=== PATIENT | female | born 1960 | race Caucasian/White ===

== ENCOUNTER 2024-10-28 06:26 | Day surgery (SDC) | payer MEDICARE, OTHER, SELFPAY | END 2024-10-28 14:30 | disposition home or self-care (01) | LOC: GI 06:26 | PROVIDERS: ATTENDING PHYSICIAN Specialist | DX: K22.70 Barrett's esophagus without dysplasia (principal); K31.89 Other diseases of stomach and duodenum; R13.10 Dysphagia, unspecified | CPT/HCPCS: 43239; 88305 ==

== ENCOUNTER 2025-05-19 12:38 | Observation (INO) | payer MEDICARE, OTHER, SELFPAY ==
[2025-05-19] VITALS (9 sets, daily range): BP systolic 101–154; BP diastolic 58–99; BMI 26.4
--- NOTE | 2025-05-19 10:43 | ED.CVA ---
History of Present Illness
General
Chief Complaint: CVA/TIA Symptoms
Source: patient and spouse
Exam Limitations: none
Time Seen by Provider: 05/19/25 10:31
Nursing documentation reviewed up to this point in time: agreed with
Onset of Stroke Symptoms
Onset of symptoms known: No
Time pt last seen normal is known: Yes
Date last time pt seen normal: 05/19/25
Time last time pt seen normal: 00:00
History of Present Illness
History of Present Illness:
65-year-old female with a past medical history as noted presents to the emergency department for evaluation of speech difficulties, feeling off balance and weak. Patient reports that she woke up this morning and she felt that her head was 'heavy'
and she says that she felt very 'wobbly.' She says that she was talking to her family and they noted that her speech was not normal. She feels weak all over but does not report any focal weakness subjectively and denies feeling numb in her
extremities. She denies any loss of vision. She denies any neck pain. She had a similar episode yesterday morning when she woke up that lasted for a few minutes and resolved, was in her normal state of health before bed at midnight last night and
then woke up with symptoms this morning.
Past History
Past History
ED Past Medical History: Other (thyroid cancer)
Social History
Tobacco: Non-smoker
Personal:
Living: with family
Review of Systems
Review of Systems
All Other Systems: ROS reviewed and negative except as documented in HPI and ROS
Constitutional: Reports fatigue; Denies fever
Respiratory: Denies trouble breathing
Cardiac: Denies chest pain
ABD/GI: Denies abdominal pain
Neurological: Reports dizzy, headache and weakness; Denies numbness
Phy Exam
Physical Exam
Physical Exam:
General: Awake, alert, oriented x3; no acute distress
Head: Normocephalic, atraumatic
Eyes: Conjunctiva normal, pupils equal round and reactive to light bilaterally
Throat: Airway intact, handling secretions
Neck: Trachea midline, supple without meningismus
Lungs: Clear to auscultation bilaterally, no wheezing, rales, rhonchi
Heart: Regular rate and rhythm, no murmurs, gallops, or rubs
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
right upper and lower extremity throughout; sensation intact in all extremities
Skin: Warm and dry
Extremities: No edema in extremities, equal pulses in all extremities
Scores
NIH Stroke Score
Level of Consciousness: 0 - Alert
LOC Questions: 0-Answers both correctly
LOC Commands: 0-Performs both correctly
Best Horizontal Gaze: 0-Normal
Visual Decker: 0=Normal, no visual loss
Facial Palsy: 0=Normal, symmetrical
Motor - Right Arm: 0=No drift 10 seconds
Motor - Left Arm: 0=No drift 10 seconds
Motor - Right Le-No drift 5 seconds
Motor - Left Le-Partial vs. gravity
Limb Ataxia: 1-Present in one limb
Sensation: 0-Normal
Best Language: 0-No aphasia
Dysarthria: 1-Mild slurring
Extinction and Inattention: 0-No abnormality
NIH Total Score:: 4
Thrombolytic Contraindication
Inclusion and Exclusion criteria reviewed: Yes
Reasons for NON-Tx with Thrombolytics ABSOLUTE Exclusions: Greater than 4.5 hrs from onset of sxs
Course
Orders/Labs/Results
Orders:
Orders
05/19/25 10:42
Electrocardiogram (*1) Stat
Reason for Study: Other
Other Reason for Exam: neuro symptoms
CT BRAIN PERF STROKE ALERT Urgent
Comment:
Reason For Exam: left sided weakness, clumsiness, aphasia
CT HEAD STROKE ALERT W/o Cont Urgent
Comment:
Reason For Exam: left sided weakness, clumsiness, aphasia
CT HEAD/NECK ANG STROKE ALERT Urgent
Comment:
Reason For Exam: left sided weakness, clumsiness, aphasia
NEUROLOGY CONSULT Urgent
Consulting Provider: Delvin Barrera
Was physician already notified: Yes
Bedside Glucose- Treatment ONCE
Cardiac Monitoring- Treatment ONCE
EKG- Treatment ONCE
05/19/25 10:50
Cardiovascular Evaluation Urgent
Comment: ADD ON
Complete Blood Count/With Diff Urgent
Comprehensive Metabolic Panel Urgent
Ferritin Urgent
Comment: ADD ON
Folate Urgent
Comment: ADD ON
Glycohemoglobin (HgbA1c) Urgent
PTT Urgent
Prothrombin Time Urgent
TSH Reflex To Free T4 Urgent
Comment: ADD ON
Vitamin B12 Urgent
Comment: ADD ON
05/19/25 11:44
Aspirin 325 mg PO NOW STA
Clopidogrel Bisulfate [Plavix] 300 mg PO NOW STA
05/19/25 12:18
Admit/Transfer Patient As Directed
Co-Sign Provider:
Level of Care: Observation services
Assign to:: Telemetry
Physician / Group: césar
Diagnosis: gait dysfunction
Reason for Telemetry: Arrhythmia
Date to Stop Telemetry: 05/22/25
Time to Stop Telemetry: 11:00
PRN Pain Medication Management As Directed
May give lesser potent ordered pain med per pt: Yes
preference::
Protocol:: Medication orders for pain may be administered in a
manner that supports deferring to patient preference
when the pt is:
- Requesting an ordered lesser potent pain medication.
Least to most potent pain medications are defined
as: acetaminophen < NSAID < tramadol < opioids
(morphine, oxycodone, hydromorphone).
- Requesting a lesser dose of the same medication IF
ORDERED.
- Requesting a less intrusive route of administration
if both routes are prescribed by the provider (PO <
IV).
05/19/25 12:19
Code Status As Directed
Resuscitation Status: Full Code
05/19/25 13:54
Case Management Consult ONCE
Case Management Consult: Discharge Planning
Comment: stroke/tia
DIETARY IP CONSULT Routine
Reason for Consult: stroke/TIA
Sorting Machine Operator Urgent
MR Brain Without Contrast Routine
Comment:
Reason For Exam: stroke/TIA
Recent pill cam endoscopy?: No
Activity As Directed
Activity Level: As Tolerated
NIH Stroke Scale As Directed
Directions: Per protocol
Comment: every shift and with any change in condition or mental status
Neurological Checks As Directed
Frequency: q4h
Additional Instructions:: q4h x 24h upon admission to the floor, then qshift & with any change in condition
and mental status
Patient Education As Directed
Type: Stroke education packet
Comment: provide to patient and family
Pneumatic Compression Sleeves As Directed
Type: Knee high
Swallow Screening CVA/TIA ONLY As Directed
Comment: NPO until swallowing screening completed
If patient FAILS swallow screening:: NPO, Speech Therapy consult, Aspiration Precautions
If patient PASSES swallow screening, diet:: Regular
Above diet order entered?: Yes- passed screening
Vital Signs As Directed
Frequency: Per unit guidelines
Ot Eval And Treat Routine
Pt Eval And Treat Routine
Activity Level: As Tolerated
Speech Therapy Eval & Treat Routine
DX Deep Vein Thrombosis Video Routine
05/19/25 18:00
Atorvastatin [Lipitor] 10 mg PO QPM
05/19/25 22:00
Melatonin 5 mg PO HS
Trazodone [Desyrel] 150 mg PO HS
05/20/25 06:00
Cardiovascular Evaluation IN AM
Complete Blood Count/With Diff IN AM
Comprehensive Metabolic Panel IN AM
05/20/25 08:00
Aspirin Chewable [Low Strength Aspirin] 81 mg PO DAILY
Bupropion(24Hr)Extended Releas [WELLBUTRIN XL (24 hour extended release)] 300 mg PO DAILY
Calcium Carbonate/Vitamin D3 [Oscal 500 + D] 500 mg PO DAILY
Cholecalciferol (Vitamin D3) [VITAMIN D3 (cholecalciferol)] 125 mcg PO DAILY
Clopidogrel Bisulfate [Plavix] 75 mg PO DAILY
Cyanocobalamin [Vitamin B-12] 1,000 mcg PO DAILY
Jkwpklnop-Rjc-Umop [Femara] 2.5 mg PO DAILY
Magnesium Oxide 400 mg PO DAILY
Multivitamin [Theragran] 1 tablet PO DAILY
Pantoprazole [Protonix] 40 mg PO DAILY
Topiramate [Topamax] 100 mg PO DAILY
biotin 1 mg PO DAILY
05/22/25 11:00
DC Protocol for Telemetry ONCE
Abnormal Lab Results
05/19/25
10:50
Basophils % 2.1 H %
(0-2)
Chloride 108 H mmol/L
(98-107)
05/19/25 10:50
05/19/25 10:50
Vital Signs
Initial and Last Documented VS:
Initial Vital Signs
Temp Pulse Resp BP Pulse Ox
36.6 C 66 20 150/83 97
05/19/25 09:39 05/19/25 09:39 05/19/25 09:39 05/19/25 09:39 05/19/25 09:39
Last Documented Vital Signs
Temp Pulse Resp BP Pulse Ox
36.5 C 70 16 154/76 99
05/19/25 13:36 05/19/25 13:36 05/19/25 13:36 05/19/25 13:36 05/19/25 13:36
MDM/Problems Addressed
Differential Diagnosis Includes:
Stroke, brain mass/brain bleed, complicated migraine, electrolyte abnormality
MDM/Problems Addressed:
65-year-old female presents to the ER for evaluation of weakness and balance issues that started this morning after having a transient episode yesterday morning. Family noted some speech difficulties as well. Woke up with symptoms, last normal
before bed at midnight last night. Hypertensive but otherwise normal vitals. Physical exam as noted. Stroke alert called after my initial assessment. NIH stroke scale as noted above. Unlikely to be thrombolytic candidate with wake-up symptoms.
Nevertheless we will proceed with CT head, CTA head and neck, CT perfusion. Check labs, EKG. Will discuss with neurology.
Labs reviewed: CBC and CMP unremarkable. CT head no acute abnormalities. Patient seen by neurology they agree concerning for CVA. Agree that patient is outside window for tenecteplase. Recommended treating with full dose aspirin, Plavix,
admission for continued workup. Discussed case with hospitalist for admission.
Chronic conditions affecting care:
Former smoker
Acute Exacerbation and/or Progression of Chronic Illness: HTN
*Radiology
Radiology exam reviewed: radiology read reviewed
*Pulse Oximetry
SaO2: 97
Oxygen Mode of Delivery: Room air
Patient hypoxic: no (97%)
*Critical Care Note
Total Time (30-74mins, 75-104mins- exclusive of procedures): Not Applicable
Data Reviewed
Source: patient and spouse
Patient Management
Discussion with other providers: Hospitalist (Discussed with hospitalist) and High Raw Sugar Boiler (Discussed with neurologist)
Escalation/DeEscalation of care consider admission/obs:
Admission indicated
ED Attending Note
-
Portions of this chart may have been created with voice recognition software.� Occasional wrong word or��sound alike� substitutions may have occurred due to the inherent limitations of voice recognition software.
Discharge Plan
Departure
Patient Disposition: Admit
Date of Disposition: 05/19/25
Time of Disposition: 11:46
Admit to doctor: Clint
Presentation/result/management discussed w/ accepting MD/DO: Hospitalist
Discharge Problem:
Acute CVA (cerebrovascular accident)
Interventions
Interventions:
*Risk Screen - Suicide Last Done: 05/19/25 09:39
*General Assessment Last Done: 05/19/25 09:39
*Neglect/Abuse Screening Last Done: 05/19/25 09:39
*ED- Fall Risk Assessment Last Done: 05/19/25 11:48
*ED COVID-19 Vaccine History Last Done: 05/19/25 11:11
*ED Influenza Vaccine History Last Done: 05/19/25 11:11
*Nursing Disposition Last Done: 05/19/25 13:19
ED- Pulmonary Assessment Last Done: 05/19/25 11:48
ED- Neurological Assessment Last Done: 05/19/25 11:48
ED- Cardiac Assessment Last Done: 05/19/25 11:48
ED Swallowing Screen Last Done: 05/19/25 11:48
Discharge Date and Time
Discharge Date/Time: 05/19/25 13:20
--- NOTE | 2025-05-19 10:43 | ED TECH ---
A STROKE ALERT was called #[id number]# Per @10:43 AM .Cat Scan Notified.
[2025-05-19 11:00] LABS: Hematocrit 41.1 % (37.0-47.0); Hemoglobin 13.7 g/dL (12.0-16.0); Mean Corp Hgb Conc. 33.3 g/dL (33.0-37.0); Mean Corpuscular Volume 89.9 fL (81.0-99.0); Nucleated Red Blood Cells % 0 %; Platelet Count 143 10^3/uL (130-400); Red Cell Dist. Width 13.7 % (11.5-14.5)
[2025-05-19 11:07] LABS: INR 0.94; PT 13.0 Sec (11.4-14.6)
--- NOTE | 2025-05-19 11:07 | CON.NEURO4 ---
Addendum entered and electronically signed by Delvin Barrera MD 05/19/25 21:04:
The patient was seen and examined on 05/19/2025, along with the nurse practitioner Snehal Granger and I agree with the assessment and the management plan of the nurse practitioner Snehal Granger. Given below is my addendum.
This is a 65-year-old right-handed female who has presented to the hospital with report of left-sided weakness, speech difficulty, and ataxia. Patient and her spouse at bedside report that yesterday morning (05/18/25), she woke up and felt 'wobbly'
and had some difficulty word finding. This resolves after a few minutes. She went to bed in her usual state last night at midnight. She reports waking up at 0830 this morning feeling dizzy and her spouse noted that he left arm and leg seemed weak,
she was unable to walk straight, and her speech wasn't fluent.
On neurologic examination, the patient had mild expressive aphasia, mild dysarthria, drift of the left upper and lower extremities along with ataxia of the left upper and lower extremities.
The NIHSS = 6.
CT head did not show any acute intracranial abnormality.
CTA head/neck did not show a large vessel occlusion.
She is not a candidate for TNK for being outside the time window and she is not a candidate for IAT as there is no LVO.
The patient will be admitted to the hospital. The patient was given a loading dose of DAPT with aspirin 325 mg and clopidogrel 300 mg x 1. She will continue aspirin 81 mg daily and clopidogrel 75 mg daily for 21 days and then she will stop
clopidogrel and continue aspirin only.
. MRI brain did not show any acute intracranial abnormality.
. TTE is pending.
. LDL goal of less than 70.
. Patient will also be on atorvastatin 40 mg daily.
I had a detailed discussion with the patient and her regarding the assessment and the management plan, and they verbalized understanding of our discussion.
Original Note:
Consultation - Neurology 4
-
CONSULTING PHYSICIAN: Delvin Barrera MD
REFERRING PHYSICIAN: ER/Dr. Pedraza
DICTATED BY: KENNEDY Stovall
DATE/TIME OF REQUEST: 05/19/25
DATE/TIME OF CONSULTATION: 05/19/25
Reason for Consultation: Stroke Alert
History of Present Illness:
This is a 65-year-old right-handed female who has presented to the hospital with report of left-sided weakness, speech difficulty, and ataxia. Patient and her spouse at bedside report that yesterday morning (05/18/25), she woke up and felt 'wobbly'
and had some difficulty word finding. This resolves after a few minutes. She went to bed in her usual state last night at midnight. She reports waking up at 0730 this morning feeling dizzy and her spouse noted that he left arm and leg seemed weak,
she was unable to walk straight, and her speech wasn't fluent. CT head, CTA head/neck, and CT brain perfusion were obtained on arrival and are negative for any acute abnormalities. NIHSS is 6 for LUE/LLE drift and ataxia, mild dysarthria, and mild
aphasia. She is not a candidate for TNK/IAT due to being outside of the time window and no LVO. Patient denies any headache and vision changes. She denies any history of TIA, stroke, or events like this in the past. She is not taking any
blood-thinning medications.
Past Medical History: HLD, thyroid cancer, migraines, restless legs syndrome, GERD, depression, anxiety
Surgical History: Thyroidectomy.
Family History: Reviewed and noncontributory.
Social History: Denies tobacco, alcohol, and illicit drug use.
Allergies: No known allergies.
Home Medications: See below.
Review of Symptoms:
Patient denies any fever, headache, chest pain, shortness of breath, GI or symptoms.
�Per the HPI.�All systems are reviewed negative except above.
Physical Exam:
The patient is afebrile, abdomen is nondistended, breathing is unlabored, skin is warm and dry, no edema.
NIH Stroke Scale:
I performed the NIH stroke scale on the patient on 05/19/25 at 1110. The patient scored 6 points on the NIH stroke scale assessment, which were assigned as follows: See below.
Neurologic Examination:
The patient is awake, alert and oriented x 3. She is able to follow commands and answer questions appropriately. There is mild aphasia and mild dysarthria. On cranial nerve assessment, pupils are 3 mm bilateral, round and reactive to light and
accommodation. Visual decker are full. Extraocular movements are intact. Facial sensations are intact and bilaterally symmetrical, there is no facial asymmetry. Hearing is intact bilaterally to normal conversation volume. Tongue palate and uvula are
midline. Motor strengths are 5/5 right upper and lower, 5-/5 left upper and lower extremities on medical research [place] scale. There is drift in the LUE and LLE. No involuntary movement noted. There was no extinction noted on double simultaneous
stimulation. Coordination is ataxic by finger to nose in the LUE and heel to gandhi in the LLE.
Lab Results: See below.
Neuro Imaging:
1. CT Head 05/19/25: No acute intracranial abnormality noted. Aspects score: 10.
2. CTA head/neck 05/19/25: Bilateral ICA calcified plaque, right greater than left. No hemodynamically significant stenosis, occlusion, or dissection. 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 No large
intracranial vessel occlusion.
3. CT brain perfusion 05/19/25: CBF 0ml, Tmax 0ml.
Differentials for the patient's presentation include:
1. Left-sided ataxia, mild weakness, and speech changes likely due to an acute ischemic stroke.
2. 2 small left supraclinoid ICA saccular aneurysms noted on CTA head/neck, incidental findings.
Patient has the following risk factors for their symptoms: HLD, age
IV Tenecteplase/IAT candidacy: She is not a candidate for TNK/IAT due to being outside of the time window and no LVO.
Recommendations:
-Provide a loading dose of DAPT with aspirin and clopidogrel x1 now. Continue DAPT for 21 days, then stop clopidogrel and continue aspirin 81mg daily only.
-Permissive hypertension SBP<220, DBP<120 until 05/20/25 at 0730, then goal normotension.
-MRI brain noncontrast pending.
-TTE pending.
-LDL goal <70. LDL is pending. Increase home atorvastatin 10mg daily to 40mg.
-Goal normoglycemia, hbA1c is pending.
-PT/OT/ST evaluations.
-NIHSS and neurological checks per unit guidelines.
-Provide patient/family with a stroke education packet.
-Eventual follow-up with Neurosurgery regarding L supraclinoid ICA aneurysms.
-DVT prophylaxis.
Discussed patient care with: Dr. Barrera, the patient
Vital Signs and Labs
-
Vital Signs and Labs:
Vital Signs
Temp Pulse Resp BP Pulse Ox
97.9 F 62 18 133/63 97
05/19/25 09:39 05/19/25 11:15 05/19/25 11:15 05/19/25 11:00 05/19/25 11:15
Lab Results
05/19/25 10:50
PT 13.0 Sec (11.4-14.6) 05/19/25 10:50
INR 0.94 05/19/25 10:50
APTT 32.2 Sec (23.4-35.0) 05/19/25 10:50
Medications
-
Home Medications
�Medication �Instructions �Recorded
oxycodone-acetaminophen 5 mg-325 1 ea PO Q4HPRN PRN abd pain 03/26/11
mg tablet (Percocet)
cyclobenzaprine 10 mg tablet 10 mg PO TID PRN muscle spasm #10 02/04/22
tabs
prednisone 10 mg tablet See Rx Instructions .Route 02/04/22
.COMPLEX #30 tabs
NIH Stroke Score
Subsequent NIH Scale
Date of Subsequent NIH Scale: 05/19/25
Time of Subsequent NIH Scale: 11:10
NIH Stroke Score
Level of Consciousness: 0 - Alert
LOC Questions: 0-Answers both correctly
LOC Commands: 0-Performs both correctly
Best Horizontal Gaze: 0-Normal
Visual Decker: 0=Normal, no visual loss
Facial Palsy: 0=Normal, symmetrical
Motor - Right Arm: 0=No drift 10 seconds
Motor - Left Arm: 1=Drift < 10 seconds
Motor - Right Le-No drift 5 seconds
Motor - Left Le-Drift < 5 seconds
Limb Ataxia: 2-Present in two limbs
Sensation: 0-Normal
Best Language: 1-Mild aphasia
Dysarthria: 1-Mild slurring
Extinction and Inattention: 0-No abnormality
NIH Total Score:: 6
Modified [place] (mRS) Score
Modified [place] Scale (mRS): Moderately severe disability. Unable to attend to bodily needs/walk.
Score: 4
Alteplase Contraindication
Inclusion and Exclusion criteria reviewed: Yes
Reasons for NON-Tx with Thrombolytics ABSOLUTE Exclusions: Greater than 4.5 hrs from onset of sxs
[2025-05-19 11:08] LABS: APTT 32.2 Sec (23.4-35.0)
[2025-05-19 11:23] LABS: ALT (SGPT) 20 U/L (0-35); AST (SGOT) 23 U/L (14-36); Albumin 4.1 g/dl (3.5-5.0); Alkaline Phosphatase 53 U/L (38-126); Blood Urea Nitrogen 17 mg/dl (7-17); Calcium 8.7 mg/dl (8.4-10.2); Carbon Dioxide 27 mmol/L (22-30); Chloride 108 mmol/L (98-107); Glucose 89 mg/dl (70-99); Potassium 4.0 mmol/L (3.5-5.1); Sodium 136 mmol/L (135-145); Total Protein 6.4 g/dl (6.3-8.2); eGFR > 60.00
[2025-05-19] MEDS: PLAVIX 300 MG PO (11:52)
[2025-05-19] MEDS: ASPIRIN 325 MG PO (11:52)
[2025-05-19 11:56] LABS: Glucose - Point of Care 89 mg/dl (70-99)
--- NOTE | 2025-05-19 12:22 | HPS.HSE ---
Addendum entered and electronically signed by Kade Bradley MD 05/19/25 12:26:
NIH of 3 for slurred speech +1 and weakness of left leg +2 on examination.
Original Note:
Family Physician
-
Family Physician: Gemma Griffith
Chief Complaint
-
gait dysfunction
History of Present Illness
65-year-old female past medical history of thyroid cancer status post partial thyroidectomy, hypercholesterolemia GERD, restless leg syndrome, obesity, migraines, presenting with speech difficulties, feeling off balance and weakness. She woke up
this morning and felt off balance. Denied vertigo. She had headache that felt different from her normal migraines. She was talking to her family and speech was not normal. No slurred speech. Has generalized weakness but denies focal weakness or
numbness or tingling. Denies vision loss. Denies neck pain. Had a similar episode yesterday when she woke up lasting for few minutes which resolved. Denies ever having symptoms like this before.
Denies chest pain or shortness of breath.
Patient does not smoke or drink alcohol or use drugs.
Her maternal grandmother had CVA.
Medical History
Past Medical History
Past Medical History: Reports Other (thyroid cancer status post partial thyroidectomy, hypercholesterolemia GERD, restless leg syndrome, obesity, migraines)
Past Surgical History: Reports None
Social History
Tobacco: Non-smoker
Alcohol: None
Drug: None
Family History
Family History: Not pertinent
Allergies / Home Medications
Allergies reflects when Allergies were last updated in [employer].
Home Medications with original date entered in [employer]
Allergy/Medication List:
Allergies
Allergy/AdvReac Type Severity Reaction Status Date / Time
No Known Allergies Allergy Verified 05/19/25 09:43
Home Medications
atorvastatin 10 mg tablet (Lipitor) 10 mg PO QPM High Cholesterol 05/19/25
biotin 1 mg tablet 1 mg PO DAILY Supplement 05/19/25
bupropion HCl 300 mg 24 hr tablet, extended release (Wellbutrin XL) 300 mg PO DAILY Mental Health/Anxiety 05/19/25
calcium 500 mg (as carbonate)-vitamin D3 10 mcg (400 unit) tablet (Calcium 500 + D) 1 tab PO DAILY Supplement 05/19/25
cholecalciferol (vitamin D3) 125 mcg (5,000 unit) tablet (Vitamin D3) 125 mcg PO DAILY Supplement 05/19/25
cyanocobalamin (vitamin B-12) 1,000 mcg tablet 1,000 mcg PO DAILY Supplement 05/19/25
letrozole 2.5 mg tablet 2.5 mg PO DAILY 05/19/25
magnesium oxide 400 mg PO DAILY Supplement 05/19/25
melatonin 5 mg tablet 5 mg PO HS Sleep 05/19/25
omeprazole 40 mg capsule,delayed release 40 mg PO DAILY Gastrointestinal Issue 05/19/25
therapeutic multivitamin 1 tab PO DAILY Supplement 05/19/25
topiramate 100 mg tablet 100 mg PO DAILY headaches 05/19/25
tramadol 50 mg tablet 50 mg PO BIDPRN PRN moderate pains 05/19/25
trazodone 100 mg tablet 150 mg PO HS Sleep 05/19/25
Review of Systems
-
History Source: Patient
A 12 point ROS was completed and negative except as noted: Yes
Constitutional: Reports No Symptoms
EENT: Reports No Symptoms
Respiratory: Reports No Symptoms
Cardiac: Reports No Symptoms
Abdomen/GI: Reports No Symptoms
: Reports No Symptoms
Musculoskeletal: Reports No Symptoms
Skin: Reports No Symptoms
Neurological: Reports See HPI
Endocrine: Reports No Symptoms
Hematologic/Lymphatic: Reports No Symptoms
Psych: Reports No Symptoms
Physical Exam
Vital Signs
Vital Signs
Temp Pulse Resp BP Pulse Ox
97.9 F 62 18 133/63 97
05/19/25 09:39 05/19/25 11:15 05/19/25 11:15 05/19/25 11:00 05/19/25 11:15
Physical Exam
General: Well Developed, Well Nourished and No Apparent Distress
HEENT: NormoCephalic, Moist mucous membranes and Atraumatic
Respiratory: Clear
Cardiac: S1/S2 and Regular Rhythm; No Murmur or Rub
GI: Soft, Non Tender, Non Distended and Normal Bowel Sounds; No Organomegaly
Rectal: Deferred by Provider
Musculoskeletal: No Clubbing, No Cyanosis and No Edema
Skin: No Rash
Neuro: Other (drift in left lower extremity, mild slurring )
Laboratory Results
-
05/19/25 10:50
05/19/25 10:50
Laboratory Results
PT 13.0 Sec (11.4-14.6) 05/19/25 10:50
INR 0.94 05/19/25 10:50
APTT 32.2 Sec (23.4-35.0) 05/19/25 10:50
Total Bilirubin 0.5 mg/dl (0.2-1.3) 05/19/25 10:50
AST 23 U/L (14-36) 05/19/25 10:50
ALT 20 U/L (0-35) 05/19/25 10:50
Alkaline Phosphatase 53 U/L (38-126) 05/19/25 10:50
Data Reviewed
-
Lab Data: Labs Reviewed by me
Old Records: Reviewed
Impression/Plan
-
IMPRESSION:
PLAN:
# Balance dysfunction/slurred speech/headache concerning for CVA
-CT head shows no acute abnormality
-CTA head and neck shows bilateral ICA calcified plaques, right greater than left, 2 small left supraclinoid ICA saccular aneurysms measuring 1.6 and 2 mm
-Out of window for TNK
- Aspirin and Plavix given
-continue statin
- Check MRI brain
- Neurology consulted
Thyroid cancer status post thyroidectomy
Hypercholesterolemia
- Continue statin
GERD
- Continue Meprazole
Restless leg syndrome
Obesity
Anxiety/depression
- Continue bupropion, trazodone
Breast cancer
- Continue letrozole
Uterine cancer status post hysterectomy
History of migraines
- Continue topiramate
Full code
DVT prophylaxis�SCDs
Regular diet
--- NOTE | 2025-05-19 12:50 | CM ---
Chart reviewed.
Spoke with patient and her William at ED bedside
BERRY reviewed with patient and
Lives in [facility] [address] [place] with spouse
Independent with ADLs
no DME
PCP Connie Griffith
RX plan yes
Ph[facility]acy [facility] in [place]
no hx of VN nor SNF
DCP is to go home
CM will continue to follow up for any dcp needs
[2025-05-19 15:46] LABS: HDL Cholesterol 64 mg/dl; LDL Cholesterol, Calculated 87 mg/dl; Very Low Density Lipoprotein 11 mg/dl (0-30)
[2025-05-19 16:33] LABS: Ferritin 65.7 ng/ml (11.1-264.0)
[2025-05-19 17:04] LABS: Folate 17.8 ng/ml (2.76-20); Vitamin B12 > 1000 pg/ml (239-931)
[2025-05-19] MEDS: LIPITOR 10 MG PO (17:25)
--- NOTE | 2025-05-19 17:28 | PTOTSP ---
ST Consult
Chart reviewed. INTELLIGENCE ENGINEER consulted for suspected TIA/CVA. MRI revealed no acute abnormalities. Pt passed nursing dysphagia screening and has been on a regular solids and thin liquids diet since admission without any reported issues or concerns for
aspiration. No major speech, language, cognitive, or swallowing concerns per RN. Acknowledge documentation of possible dysarthria - if this persists, pt can pursue OP INTELLIGENCE ENGINEER evaluation/tx as indicated. IP INTELLIGENCE ENGINEER evaluation deemed not warranted at this
time. INTELLIGENCE ENGINEER to sign off. Please re-consult if anything changes. Thank you.
[2025-05-19] MEDS: MELATONIN 5 MG PO (21:18)
[2025-05-19] MEDS: DESYREL 150 MG PO (21:19)
[2025-05-20 03:00] VITALS: BP 122/64
[2025-05-20 07:54] LABS: Hematocrit 40.5 % (37.0-47.0); Hemoglobin 13.5 g/dL (12.0-16.0); Mean Corp Hgb Conc. 33.3 g/dL (33.0-37.0); Mean Corpuscular Volume 87.7 fL (81.0-99.0); Nucleated Red Blood Cells % 0 %; Platelet Count 151 10^3/uL (130-400); Red Cell Dist. Width 13.6 % (11.5-14.5)
[2025-05-20 08:00] VITALS: BP 105/63
[2025-05-20 08:14] LABS: ALT (SGPT) 19 U/L (0-35); AST (SGOT) 20 U/L (14-36); Albumin 3.7 g/dl (3.5-5.0); Alkaline Phosphatase 59 U/L (38-126); Blood Urea Nitrogen 17 mg/dl (7-17); Calcium 8.9 mg/dl (8.4-10.2); Carbon Dioxide 25 mmol/L (22-30); Chloride 110 mmol/L (98-107); Estimated Creatinine Clearance 59 ml/min; Glucose 85 mg/dl (70-99); HDL Cholesterol 63 mg/dl; LDL Cholesterol, Calculated 85 mg/dl; Potassium 3.9 mmol/L (3.5-5.1); Sodium 137 mmol/L (135-145); Total Protein 6.0 g/dl (6.3-8.2); Very Low Density Lipoprotein 14 mg/dl (0-30); eGFR > 60.00
[2025-05-20] MEDS: FEMARA PO (08:50)
[2025-05-20] MEDS: PROTONIX 40 MG PO (08:51)
[2025-05-20] MEDS: WELLBUTRIN XL (24 hour extended release) 300 MG PO (08:51)
[2025-05-20] MEDS: VITAMIN B-12 1000 MCG PO (08:51)
[2025-05-20] MEDS: PLAVIX 75 MG PO (08:53)
[2025-05-20] MEDS: THERAGRAN 1 TABLET PO (08:53)
[2025-05-20] MEDS: MAGNESIUM OXIDE 400 MG PO (08:53)
[2025-05-20] MEDS: LOW STRENGTH ASPIRIN 81 MG PO (08:53)
[2025-05-20] MEDS: TOPAMAX 100 MG PO (08:53)
[2025-05-20] MEDS: VITAMIN D3 (cholecalciferol) 125 MCG PO (08:53)
[2025-05-20] MEDS: OSCAL 500 + D 500 MG PO (08:53)
--- NOTE | 2025-05-20 10:25 | W.PN.HOSP.TC ---
Addendum entered and electronically signed by Jayne Joyner MD 05/20/25 18:06:
Addendum
Patient was seen by neurologist. Discussed discharge and treatment plan with patient and her brother who is a family doctor
Discussed with neurologist. Okay to discharge and follow in outpatient. Continue dual antiplatelet therapy for 21 days and then continue on aspirin.
Discussed with patient, she is requesting discharge today.
Total discharge time spent to see the patient, examine the patient, review data and lab results, discuss discharge plan with patient, neurologist, case management specialist, nursing staff around 65 minutes�
Original Note:
Today's Communication/Plan
-
f/w neurology recommendations
Assessment / Plan
Assessment / Plan
65-year-old female presented to the hospital with report of left-sided weakness, speech difficulty, and ataxia.
# MRI showed no stroke
Possible TIA
She is followed by neurology
Started on dual ant-platelet therapy with high dose statin
Echo showed normal LVEF at 62%. No significant valvular heart disease.
Normal TSH & Folate & Vit B12
LDL at 85, HDL 14, TG 73, Total Cholesterol 162
f/w neurology recommendations
# Tobacco use
Counseled to quit
Thyroid cancer status post thyroidectomy
Hypercholesterolemia
- Continue statin
GERD
- Continue Meprazole
Restless leg syndrome
Obesity
Anxiety/depression
Mood is normal
- Continue bupropion, trazodone
Breast cancer
- Continue letrozole
Uterine cancer status post hysterectomy
History of migraines
- Continue topiramate
Total time spent to see the patient, examine the patient, review data and lab results, discuss treatment plan with patient, nursing staff around 55 minutes�
Anticipated Discharge: Today
Subjective/Interval History
-
Date of Service: May 20, 2025
No chest pain
No sob
Still word- finding difficulty
Objective Data
-
Labs:
Laboratory Results
05/20/25
06:53
WBC 6.0
Hgb 13.5
Hct 40.5
Plt Count 151
Sodium 137
Potassium 3.9
Chloride 110 H
Carbon Dioxide 25
BUN 17
Creatinine 0.8
Glucose 85
Calcium 8.9
Total Bilirubin 0.6
AST 20
ALT 19
Alkaline Phosphatase 59
Vital Signs:
Vital Signs
Temp Pulse Resp BP Pulse Ox
97.8 F 57 18 105/63 97
05/20/25 08:00 05/20/25 08:00 05/20/25 08:00 05/20/25 08:00 05/20/25 08:00
Physical Exam
-
General: No Apparent Distress and Comfortable
HEENT: Atraumatic and Moist Mucous Membranes
Respiratory: Clear to Auscultation
Cardiac: Regular Rhythm and S1/S2
GI: Soft and Nontender
Rectal: Negative Maroon Stools
Genito-urinary: No Costovertebral Tender; Negative Granados
Musculoskeletal: No Clubbing, No Cyanosis and No Edema
Skin: Warm and Dry
Neuro: AO x 3 and Nonfocal/Grossly Intact; Negative Facial Droop
Psych: Calm and Intact Judgement/Insight
[2025-05-20 11:12] VITALS: BP 127/60
[2025-05-20] MEDS: FEMARA 2.5 MG PO (11:55)
[2025-05-20 12:13] LABS: Glycohemoglobin (HgbA1c) 5.4 % (4.0-5.9)
--- NOTE | 2025-05-20 12:30 | W.PN.NEURO.1 ---
Today's Communication / Plan
-
On neurologic examination, today, her symptoms have improved, and she has a very subtle drift in the left arm and left leg. She does have have some difficulty with word finding, but when she stays calm and speaks slowly she can speak clearly.
. CT head did not show any acute intracranial abnormality.
. CTA head/neck did not show a large vessel occlusion.
She was not a candidate for TNK because of being outside the time window and she was not a candidate for IAT as there is no LVO.
The patient was given a loading dose of DAPT with aspirin 325 mg and clopidogrel 300 mg x 1. She will continue aspirin 81 mg daily and clopidogrel 75 mg daily for 21 days and then she will stop clopidogrel and continue aspirin only.
. MRI brain did not show any acute intracranial abnormality.
. TTE was done yesterday and it showed an ejection fraction of 62%.
. LDL goal of less than 70.
. Patient will also be on atorvastatin 40 mg daily.
Discussed with Dr. Jayne Joyner.
Subjective/Objective
Subjective Data
Date of Service: May 20, 2025
This is a 65-year-old right-handed female who has presented to the hospital with report of left-sided weakness, speech difficulty, and ataxia. Patient and her spouse at bedside in the ER reported that in the morning on 05/18/25, she woke up and felt
'wobbly' and had some difficulty with word finding. This resolved after a few minutes. She went to bed in her usual state at midnight. She reports waking up at 0830 in the morning on 05/19/2025, feeling dizzy and her spouse noted that her left arm
and leg seemed to be weak, she was unable to walk straight, and her speech wasn't fluent.
On neurologic examination, today, her symptoms have improved, and she has a very subtle drift in the left arm and left leg. She does have have some difficulty with word finding, but when she stays calm and speaks slowly she can speak clearly.
. CT head did not show any acute intracranial abnormality.
. CTA head/neck did not show a large vessel occlusion.
She was not a candidate for TNK because of being outside the time window and she was not a candidate for IAT as there is no LVO.
The patient was given a loading dose of DAPT with aspirin 325 mg and clopidogrel 300 mg x 1. She will continue aspirin 81 mg daily and clopidogrel 75 mg daily for 21 days and then she will stop clopidogrel and continue aspirin only.
. MRI brain did not show any acute intracranial abnormality.
. TTE was done yesterday and it showed an ejection fraction of 62%.
. LDL goal of less than 70.
. Patient will also be on atorvastatin 40 mg daily.
Objective Data
Vital Signs
Temp Pulse Resp BP Pulse Ox
36.6 C 68 18 127/60 96
05/20/25 11:12 05/20/25 11:12 05/20/25 11:12 05/20/25 11:12 05/20/25 11:12
Lab Results
05/20/25 06:53
05/20/25 06:53
PT 13.0 Sec (11.4-14.6) 05/19/25 10:50
INR 0.94 05/19/25 10:50
APTT 32.2 Sec (23.4-35.0) 05/19/25 10:50
Sodium 137 mmol/L (135-145) 05/20/25 06:53
Potassium 3.9 mmol/L (3.5-5.1) 05/20/25 06:53
BUN 17 mg/dl (7-17) 05/20/25 06:53
Glucose 85 mg/dl (70-99) 05/20/25 06:53
Calcium 8.9 mg/dl (8.4-10.2) 05/20/25 06:53
LDL Cholesterol, Calc 85 mg/dl 05/20/25 06:53
Vitamin B12 > 1000 pg/ml (239-931) H 05/19/25 10:50
Patient Allergies
No Known Allergies Allergy (Verified 05/19/25 09:43)
--- NOTE | 2025-05-20 15:20 | W.DCSUMMARY ---
Discharge Summary
Discharge Data
Date of Admission: 05/19/25
Date of Discharge: 05/20/25
-
Pending Results: No
Hospital Course
65-year-old right-handed female presented to the hospital with report of left-sided weakness, speech difficulty, and ataxia. Patient and her spouse at bedside reported that yesterday morning (05/18/25), she woke up and felt 'wobbly' and had some
difficulty word finding. That resolved after a few minutes. She went to bed in her usual state later that night but she woke up at 0730 next day, feeling dizzy. Her spouse noted that he left arm and leg seemed weak, she was unable to walk straight,
and her speech wasn't fluent. CT head, CTA head/neck, and CT brain perfusion were obtained on arrival and are negative for any acute abnormalities. She was not a candidate for TNK/IAT due to being outside of the time window. Patient was evaluated
by neurologist. Neurologist felt that could be TIA. She was started on dual antiplatelet therapy with aspirin and Plavix. Patient was not taking aspirin before. She was advised to avoid smoking and was given nicotine patch prescription. Lipid
panel showed total cholesterol 162, LDL 85, HDL 63. She had normal folate/vitamin B12/TSH. Heart monitor did not show any arrhythmias echocardiogram showed normal LVEF at 62% with no significant valvular disease. Patient started to feel better
and back to baseline. She was evaluated by physical therapy and Occupational Therapy. Patient did not have skilled needs. Patient remained hemodynamically stable. Neurologist recommended to continue aspirin Plavix for 21 days then to continue
with aspirin alone with higher dose of Lipitor. Patient was discharged home in a stable condition.
Discharge Plan
-
Patient Disposition: Home (Routine Discharge)
Discharge Diagnosis/Procedures: You presented with an episode of speech difficulty/feeling of balance and weakness. You had imaging studies of the head and neck did not show acute finding. You were evaluated by neurologist. Possible TIA (you did
well and felt back to normal. Neurologist recommended to take aspirin and Plavix for 21 days then continue with aspirin. Transient ischemic attack). Increase the dose of atorvastatin.
-Potential side effects of aspirin and Plavix include gastritis, bruising, Bleeding.
-Potential side effects of statin/Lipitor include myositis, myopathy, muscle pain, fatigue, elevated liver enzymes.
- Follow-up with neurology in 1 month. Follow-up with the primary care doctor within a week for outpatient physical therapy if needed.
- Tobacco use, advised to quit smoking
- Hold omeprazole while taking Plavix to avoid interaction.
Diet: As tolerated and Low Fat
Referrals:
Gemma Griffith MD [Family Provider] - in less than 1 week
Delvin Barrera MD [Active, Neurology] - in one month
Prescriptions:
New
clopidogrel 75 mg Tablet
75 mg PO DAILY Qty: 21 0RF
aspirin 81 mg Tablet,Chewable
81 mg PO DAILY Qty: 30 0RF
atorvastatin [Lipitor] 40 mg tablet
40 mg PO DAILY Qty: 30 0RF
nicotine 14 mg/24 hr patch 24 hour
1 patch transdermal DAILY Qty: 28 0RF
Continued
cyanocobalamin (vitamin B-12) 1,000 mcg Tablet
1,000 mcg PO DAILY
therapeutic multivitamin Tablet
1 tab PO DAILY
tramadol 50 mg Tablet
50 mg PO BIDPRN PRN (Reason: moderate pains)
trazodone 100 mg Tablet
150 mg PO HS
letrozole 2.5 mg Tablet
2.5 mg PO DAILY
topiramate 100 mg Tablet
100 mg PO DAILY
bupropion HCl [Wellbutrin XL] 300 mg Tablet Extended Release 24 Hr
300 mg PO DAILY
biotin 1 mg Tablet
1 mg PO DAILY
calcium carbonate-vitamin D3 [Calcium 500 + D] 500 mg-10 mcg (400 unit) Tablet
1 tab PO DAILY
melatonin 5 mg Tablet
5 mg PO HS
cholecalciferol (vitamin D3) [Vitamin D3] 125 mcg (5,000 unit) Tablet
125 mcg PO DAILY
magnesium oxide 400 mg magnesium Tablet
400 mg PO DAILY
Held
omeprazole 40 mg Capsule,Delayed Release(Dr/Ec)
40 mg PO DAILY
Hold Instructions: Resume on 06/10/25.
Discontinued
atorvastatin [Lipitor] 10 mg Tablet
10 mg PO QPM
Discharge Orders:
Discharge Patient (As Directed); Ordered 05/20/25
Ordered By: Jayne Joyner
Discharge Date and Time
Discharge Date/Time: 05/20/25 16:54
Print Language: ROMANSH
--- NOTE | 2025-05-20 15:28 | CM ---
Chart reviewed. Patient will d/c home today
PT- rec OP PT. TT to hospitalist for script
No other CM needs at this time
Plan: Home, OP PT
[2025-05-20 16:11] VITALS: BP 115/67
== END 2025-05-20 16:54 | disposition home or self-care (01) ==
LOC: 4 EAST ACU 12:38
PROVIDERS: ADMITTING PHYSICIAN Hospitalist; ATTENDING PHYSICIAN Internal Medicine; CONSULT PHYSICIAN Psychiatry & Neurology Neurology; EMERGENCY PHYSICIAN Emergency Medicine; FAMILY PHYSICIAN Family Medicine
DX: R53.1 Weakness (principal); R26.81 Unsteadiness on feet; Z72.0 Tobacco use; R47.1 Dysarthria and anarthria; Z79.899 Other long term (current) drug therapy; E78.00 Pure hypercholesterolemia, unspecified; K21.9 Gastro-esophageal reflux disease without esophagitis; G25.81 Restless legs syndrome; E66.9 Obesity, unspecified; Z68.26 Body mass index [BMI] 26.0-26.9, adult; F41.9 Anxiety disorder, unspecified; F32.A Depression, unspecified; E89.0 Postprocedural hypothyroidism; Z85.850 Personal history of malignant neoplasm of thyroid; Z85.42 Personal history of malignant neoplasm of other parts of uterus; C50.919 Malignant neoplasm of unspecified site of unspecified female breast; Z79.02 Long term (current) use of antithrombotics/antiplatelets; Z79.811 Long term (current) use of aromatase inhibitors; Z79.82 Long term (current) use of aspirin
CPT/HCPCS: 0042T; 70450; 70496; 70498; 70551; 80053; 80061; 82607; 82728; 82746; 82962; 83036; 84443; 85025; 85610; 85730; 93005; 93306; 97162; 97166; 97530; 99285; 99406; G0378; Q9967

== ENCOUNTER → 2025-06-03 07:26 | Outpatient (REF) | payer MEDICARE, OTHER, SELFPAY ==
[2025-06-03 08:46] LABS: Hematocrit 42.3 % (37.0-47.0); Hemoglobin 14.0 g/dL (12.0-16.0); Mean Corp Hgb Conc. 33.1 g/dL (33.0-37.0); Mean Corpuscular Volume 87.9 fL (81.0-99.0); Nucleated Red Blood Cells % 0 %; Platelet Count 144 10^3/uL (130-400); Red Cell Dist. Width 13.2 % (11.5-14.5)
== END ==
LOC: RSP 07:26
PROVIDERS: ATTENDING PHYSICIAN Family Medicine
DX: J41.0 Simple chronic bronchitis (principal); D69.6 Thrombocytopenia, unspecified
CPT/HCPCS: 36415; 85025; 88738; 94010; 94727; 94729

== ENCOUNTER 2025-06-21 07:08 | Outpatient (RCR) | payer MEDICARE, OTHER, SELFPAY | END 2025-06-21 23:59 | disposition home or self-care (01) | LOC: RST 07:08 | PROVIDERS: ATTENDING PHYSICIAN Family Medicine | DX: I69.320 Aphasia following cerebral infarction (principal); I69.390 Apraxia following cerebral infarction; I69.354 Hemiplegia and hemiparesis following cerebral infarction affecting left non-dominant side; Z73.6 Limitation of activities due to disability; M62.81 Muscle weakness (generalized) | CPT/HCPCS: 92507; 92523; 97110; 97112; 97116; 97163 ==